=== PATIENT | male | born 1940 | race Caucasian/White ===

== ENCOUNTER 2019-08-17 09:28 | Outpatient (CLI) | payer OTHER, SELFPAY ==
[2019-08-17 10:44] LABS: Blood Urea Nitrogen 23 mg/dL (9-20); Calcium 9.2 mg/dL (8.4-10.2); Carbon Dioxide 31 mmol/L (22-30); Chloride 101 mmol/L (98-107); Estimated Glomerular Filt Rate > 60; Glucose 108 mg/dL (75-110); Potassium 4.4 mmol/L (3.4-5.0); Sodium 139 mmol/L (137-145)
--- NOTE | 2019-08-20 12:46 | WPDHOLTEREM ---
Holter/Event Monitor Holter/Event Monitor Date of procedure: 08/17/19 Procedure Type: 48 hour holter monitor Indications: Syncope Conclusion: 1. 48 hour holter monitor on 08/17/19. 2. Predominant rhythm is sinus rhythm. HR range 57-130 bpm; average HR 76 bpm. 3. There are 468 premature supraventricular complexes, 6 supraventricular couplets, and 40 supraventricular trigeminy. No supraventricular tachycardia. 4. There are 5 premature ventricular complexes and 1 ventricular couplet. No ventricular tachycardia. 5. No sinoatrial or atrioventricular blocks. No significant pauses greater than 2 seconds. 6. No symptoms available for correlation.
== END 2019-08-17 09:29 | disposition home or self-care (01) ==
PROVIDERS: PCP Internal Medicine; Visit Provider Internal Medicine
DX: I10 Essential (primary) hypertension (principal); R55 Syncope and collapse
CPT/HCPCS: 36415; 80048; 93225; 93226

== ENCOUNTER 2019-09-02 07:24 | Outpatient (CLI) | payer OTHER, SELFPAY ==
[2019-09-05 12:44] LABS: Testosterone Total 134 ng/dL (250-1100)
== END 2019-09-02 07:25 | disposition home or self-care (01) ==
PROVIDERS: PCP Internal Medicine; Visit Provider Internal Medicine
DX: R79.89 Other specified abnormal findings of blood chemistry (principal)
CPT/HCPCS: 36415; 84403

== ENCOUNTER 2019-12-02 09:31 | Outpatient (CLI) | payer OTHER, SELFPAY ==
[2019-12-02 10:17] LABS: CRP 1.2 mg/dL (<1.0)
[2019-12-02 10:25] LABS: Erythrocyte Sedimentation Rate 1 mm/hr (0-20)
== END 2019-12-02 09:32 | disposition home or self-care (01) ==
PROVIDERS: PCP Internal Medicine; Visit Provider Orthopaedic Surgery
DX: M25.551 Pain in right hip (principal)
CPT/HCPCS: 36415; 85652; 86140

== ENCOUNTER 2019-12-06 15:32 | Emergency (ER) | payer OTHER, SELFPAY ==
--- NOTE | ~2019-12-06 | XR_ITS ---
EXAMINATION: XR lumbar spine 2-3V DATE: 12/06/2019 16:06 INDICATION: Back pain radiating down both legs. TECHNIQUE: Anteroposterior and lateral views of the lumbar spine, and cone-down lateral view of the l umbosacral junction were obtained. COMPARISON: Lumbar spine dated 04/01/2018 FINDINGS: 2 mm anterolisthesis L2 on L3 and 4 mm anterolisthesis L3 on L4. Lumbar vertebral body heights are no rmal. Mild disc height loss at T12, T12-L1, L3-L4, L4-5 and L5-S1. Multilevel bilateral severe lumbar facet osteoarthritis. Moderate bilateral sacroiliac osteoarthritis with ankylosis across portion of the right sacroiliac joint. Partially visualized right total hip arthroplasty. At least mild osteoart hritis at the partially visualized left hip joint. Atherosclerotic calcifications along the margins o f the abdominal aorta with partially visualized fusiform abdominal aortic aneurysm measuring up to 3. 9 cm AP diameter. IMPRESSION: 1. Moderate lumbar spondylosis. 2. Moderate bilateral sacroiliac osteoarthritis with partial ankylosis on the right. 3. Fusiform abdominal aortic aneurysm measuring up to 3.9 cm in AP diameter. Reviewed, dictated and finalized at location A. IMPRESSION: 1. Moderate lumbar spondylosis. 2. Moderate bilateral sacroiliac osteoarthritis with partial ankylosis on the r ight. 3. Fusiform abdominal aortic aneurysm measuring up to 3.9 cm in AP diameter.
[2019-12-06 15:35] VITALS: BP 198/75; PULSE 66; RESP 18; TEMP 36.6; O2SAT 97
[2019-12-06] MEDS: SODIUM CHLORIDE 0.9% IV 500 ML 999 ML IV CONT (15:58)
--- NOTE | 2019-12-06 16:18 | ED.BACK ---
HPI - Back Pain/Injury General Chief Complaint: Back Pain/Injury <Clifford Lennon PA-C - Last Filed: 12/06/19 17:46> Stated Complaint: hip pain <Clifford Lennon PA-C - Last Filed: 12/06/19 17:46> Time Seen by Provider: 12/06/19 15:34 <Clifford Lennon PA-C - Last Filed: 12/06/19 17:46> Source: patient <Clifford Lennon PA-C - Last Filed: 12/06/19 17:46> Mode of arrival: ambulatory <Clifford Lennon PA-C - Last Filed: 12/06/19 17:46> Limitations: no limitations <DYLAN Ortiz Last Filed: 12/06/19 17:46> History of Present Illness HPI Narrative: Patient is a 79-year-old male who presents to emergency department for evaluation of low back pain localized to the right lower back that radiates down the right leg has been present now for the last couple of weeks patient denies injury or trauma saw his orthopedist was concerned that it may be is hip but was told that it was likely has back patient has been taking hydrocodone and anti-inflammatories with minimal improvement patient on arrival to emergency department is in the room in no distress <Clifford Lennon PA-C - Last Filed: 12/06/19 17:46> Related Data Allergies/Adverse Reactions: Allergies Allergy/AdvReac Type Severity Reaction Status Date / Time acetaminophen [From Tylenol] Allergy Mild Rash Verified 12/02/19 08:21 <Clifford Lennon PA-C - Last Filed: 12/06/19 17:46> Review of Systems Review of Systems: All systems reviewed & are unremarkable except as noted in HPI and below <Clifford Lennon PA-C - Last Filed: 12/06/19 17:46> [facility] Past Medical History Medical History: Medical History BPH (benign prostatic hyperplasia) Depression with anxiety Dizziness Hyperlipidemia Hypertension Impaired glucose tolerance Low testosterone in male ELINA on CPAP Osteoarthritis Osteoarthritis of multiple joints Vertigo Vision loss <DYLAN Ortiz Last Filed: 12/06/19 17:46> Surgical History Surgical History: Surgical History History of appendectomy Hx of arthroscopy of left knee Hx of bilateral cataract extraction Hx of hemorrhoidectomy Hx of inguinal herniorrhaphy S/P total hip arthroplasty <Clifford Lennon PA-C - Last Filed: 12/06/19 17:46> Social History Social History: Social History Smoking status: Former smoker Smoking end date: 07/08/97 Alcohol intake: never Substance use: never Gender identity (if verbalized by the patient): Male Spiritual care concerns: No Agree to blood products: Yes <Clifford Lennon PA-C - Last Filed: 12/06/19 17:46> Exam Narrative: Exam Narrative: GENERAL: Well-appearing, well-nourished, and in no acute distress. HEAD: Normocephalic, atraumatic. EYES: PERRLA and EOMI. ENT: Nares clear, no rhinorrhea or epistaxis. Mucous membranes moist. CHEST: Clear to auscultation. No respiratory distress. No wheezes rales or rhonchi HEART: Regular rate and rhythm. No murmur heard. Normal peripheral pulses. ABDOMEN: Soft, nontender, distended EXTREMITIES: Normal range of motion. No edema. Tenderness of the right SI region no deformity noted SKIN: Warm, dry, no rash. NEURO: No focal deficits. Alert and oriented x3. Cranial nerves II through XII grossly intact. Motor and sensory intact and symmetrical in the extremities PSYCH: Normal mood and affect. <Clifford Lennon PA-C - Last Filed: 12/06/19 17:46> Course Course Emergency Course: Patient in the room aware of case findings treatment plan and diagnosis agreeing to follow-up as directed or to return if symptoms worsen or concerns <Clifford Lennon PA-C - Last Filed: 12/06/19 17:46> Consultations Consultation #1: Spoke with Dr. Walker who will inform patient's primary care of the findings today specificall
[2019-12-06 16:19] LABS: Basophils Percent Auto 0.7 % (0.2-1.2); Eosinophils Absolute Auto 0.2 K/mm3 (0-0.3); Eosinophils Percent Auto 3.2 % (0-4.4); Hematocrit 45.6 % (42.0-52.0); Hemoglobin 15.1 g/dL (14.0-18.0); Immature Granulocyte Absolute 0.02 K/mm3 (0.00-0.031); Immature Granulocyte Percent A 0.3 % (0-0.5); Lymphocytes Absolute Auto 1.22 K/mm3 (0.9-3.2); Lymphocytes Percent Auto 20.8 % (18.3-44.2); Mean Corpuscular HGB Conc 33.1 g/dl (32-36); Mean Corpuscular Hemoglobin 30.4 pg (26-34); Mean Corpuscular Volume 91.8 fl (80-100); Mean Platelet Volume 10.6 fl (7.4-10.4); Monocytes Absolute Auto 0.8 K/mm3 (0.1-0.6); Monocytes Percent Auto 13.3 % (2.6-8.5); Neutrophils Absolute Auto 3.6 K/mm3 (1.3-6.7); Neutrophils Percent Auto 61.7 % (45.5-73.1); Platelet Count Result 164 k/mm3 (150-375); Red Blood Count 4.97 M/mm3 (4.6-6.20); Red Cell Distribution Width 15.5 % (11.5-14.5); White Blood Count 5.9 K/mm3 (4.5-10.0)
[2019-12-06 16:29] LABS: Potassium 4.3 mmol/L (3.4-5.0)
[2019-12-06 16:32] LABS: Blood Urea Nitrogen 21 mg/dL (9-20); Calcium 8.8 mg/dL (8.4-10.2); Carbon Dioxide 28 mmol/L (22-30); Chloride 97 mmol/L (98-107); Estimated CRCL calculation 74 ml/min; Estimated Glomerular Filt Rate > 60; Glucose 117 mg/dL (75-110); Sodium 130 mmol/L (137-145)
[2019-12-06 18:10] VITALS: BP 162/58; PULSE 63; RESP 18; O2SAT 98
== END 2019-12-06 18:14 | disposition home or self-care (01) ==
PROVIDERS: Emergency Medicine Emergency Medical Services; Emergency Provider Emergency Medicine; PCP Internal Medicine
DX: M54.5 Low back pain (principal); I71.4 Abdominal aortic aneurysm, without rupture; N40.0 Benign prostatic hyperplasia without lower urinary tract symptoms; E78.5 Hyperlipidemia, unspecified; I10 Essential (primary) hypertension; G47.33 Obstructive sleep apnea (adult) (pediatric); M19.90 Unspecified osteoarthritis, unspecified site; Z98.42 Cataract extraction status, left eye; Z98.41 Cataract extraction status, right eye; Z96.649 Presence of unspecified artificial hip joint; Z87.891 Personal history of nicotine dependence; M47.816 Spondylosis without myelopathy or radiculopathy, lumbar region; M47.898 Other spondylosis, sacral and sacrococcygeal region
CPT/HCPCS: 36415; 72100; 80048; 85025; 96361; 96374; 99284; J3360; J7040

== ENCOUNTER 2019-12-07 16:22 | Outpatient (CLI) | payer OTHER, SELFPAY ==
--- NOTE | ~2019-12-07 | MR_ITS ---
EXAMINATION: MR lumbar spine wo con DATE: 12/07/2019 17:07 INDICATION: Lumbar spinal stenosis. Low back pain. TECHNIQUE: Magnetic resonance imaging (MRI) of the lumbar spine was performed without intravenous con trast. Sequences included sagittal T2-weighted FSE, sagittal T2-weighted FS FSE, sagittal T1-weighted FSE, and axial T2-weighted FSE. COMPARISON: Lumbar spine MRI 04/01/2018 FINDINGS: There is 8 degrees dextrocurvature of lumbar spine. There is 3 mm anterolisthesis of L3 on L4. Vertebral body heights are normal. There is moderately decreased disc height at L5-S1. The distal spinal cord signal intensity is normal. The conus medullaris is at T12-L1. The following disc levels are specifically discussed: L1-L2: The disc is mildly bulging. There is moderate right and mild left facet joint osteoarthritis. There is mild bilateral neural foraminal stenosis. There is mild central canal stenosis. L2-L3: The disc is bulging. There is severe right and moderate left facet joint osteoarthritis. There is mild bilateral neural foraminal stenosis. There is mild central canal stenosis. L3-L4: The disc does not extend beyond the endplate margin. There is severe bilateral facet joint ost eoarthritis. There is mild bilateral neural foraminal stenosis. There is mild central canal stenosis. L4-L5: The disc is bulging. There is severe right and moderate left facet joint osteoarthritis. There is mild bilateral neural foraminal stenosis. There is mild central canal stenosis. L5-S1: The disc is bulging and has an annular fissure. There is severe bilateral facet joint osteoart hritis. There is moderate bilateral neural foraminal stenosis. There is mild central canal stenosis. IMPRESSION: 1. Moderate lower lumbar spondylosis, stable from 04/01/2018. Reviewed, dictated and finalized at location A.
== END 2019-12-07 16:23 | disposition home or self-care (01) ==
PROVIDERS: PCP Internal Medicine; Visit Provider Orthopaedic Surgery
DX: M48.062 Spinal stenosis, lumbar region with neurogenic claudication (principal); M47.816 Spondylosis without myelopathy or radiculopathy, lumbar region
CPT/HCPCS: 72148

== ENCOUNTER 2019-12-18 11:24 | Outpatient (CLI) | payer OTHER, SELFPAY ==
--- NOTE | ~2019-12-18 | MR_ITS ---
EXAMINATION: MR hip RT wo con DATE: 12/18/2019 13:35 INDICATION: Right hip pain TECHNIQUE: Magnetic resonance imaging (MRI) of the right hip was performed without intravenous contr ast. Sequences included full-field of the pelvis with axial STIR, coronal T1-weighted FSE and T2-weig hted FSE and small field of view of the right hip with axial, sagittal and coronal T1-weighted FSE an d T2-weighted FSE and coronal fluid sensitive FSE STIR. Increased band width was utilized for metal s uppression. COMPARISON: None FINDINGS: Bones: Metallic magnetic field artifact associated with a right total hip arthroplasty. There is a well-defi gaby fluid collection along the anterolateral aspect of the femoral stem extends 4.3 cm caudally from the level of the calcar. The collection has a triangular configuration on the axial images measuring 1.4 x 0.4 cm in maximal transaxial dimensions. Normal bone marrow signal throughout with no evident f racture or pathologic marrow replacing process. Moderate lower lumbar spondylosis. Fluid: Symmetric physiologic amount of fluid within both hip joints. 5.6 x 3.8 x 1.5 cm fluid-filled greater trochanteric bursa which underlines the more superficial surgical scar. No significant surrounding s oft tissue edema to suggest septic bursitis. Soft tissues: There is prominent thickening and mild increased signal of the distal 2 cm of the posterior compartme nt of the right gluteus medius tendon consistent with tendinopathy without discrete tear. The bilater al iliopsoas and remaining gluteal tendons are normal. There is relatively symmetric mild tendinopath y without discrete tear at the ischial tuberosity origin of the bilateral hamstring tendons. There is asymmetric moderate fatty atrophy and mild increased fluid signal throughout the right quadratus fem violeta muscle. The distal muscle and tendon passed between the right ischial and the lesser trochanter the cortical margins of which are by only 3-4 mm. Otherwise symmetric muscle bulk and signa l throughout the pelvis and proximal thighs. Trabeculated mucosal surface of the bladder which may be related to chronic outlet obstruction from the mildly enlarged prostate. There are few scattered div erticula along the sigmoid colon without adjacent inflammatory change to suggest diverticulitis. No pathologically enlarged pelvic/inguinal lymphadenopathy. IMPRESSION: 1. Moderate tendinopathy without discrete tear at the distal right radius medius tendon. 2. Right ischiofemoral impingement with quadratus femoris space measuring 3-4 mm and with edema and m oderate fatty atrophy of the right quadratus femoris muscle. 3. Moderate amount of fluid in the right greater trochanteric bursa which could represent a residual postoperative seroma or bursitis. 4. Right total hip arthroplasty with small fluid collection along Gruen zone 1. 5. Mild tendinopathy at the bilateral proximal hamstring origins. Reviewed, dictated and finalized at location A. IMPRESSION: 1. Moderate tendinopathy without discrete tear at the distal right radius mediu s tendon. 2. Right ischiofemoral impingement with quadratus femoris space measuring 3-4 m m and with edema and moderate fatty atrophy of the right quadratus femoris musc le. 3. Moderate amount of fluid in the right greater trochanteric bursa which could represent a residual postoperative seroma or bursitis. 4. Right total hip arthroplasty with small fluid collection along Gruen zone 1. 5. Mild tendinopathy at the bilateral proximal hamstring origins.
== END 2019-12-18 11:25 | disposition home or self-care (01) ==
LOC: ANHIMG 11:25
PROVIDERS: PCP Internal Medicine; Visit Provider Orthopaedic Surgery
DX: M25.551 Pain in right hip (principal); M76.891 Other specified enthesopathies of right lower limb, excluding foot; M25.851 Other specified joint disorders, right hip; M62.551 Muscle wasting and atrophy, not elsewhere classified, right thigh; Z96.641 Presence of right artificial hip joint
CPT/HCPCS: 73721

== ENCOUNTER 2019-12-22 17:07 | Emergency (ER) | payer OTHER, SELFPAY ==
[2019-12-22 17:19] VITALS: BP 145/76; PULSE 90; RESP 16; TEMP 36.3; O2SAT 97
--- NOTE | 2019-12-22 18:35 | ED.LOWEXIN ---
HPI - Extremity Injury (Lower) General Chief Complaint: Extremity Injury, Lower Stated Complaint: hip pain/htn Time Seen by Provider: 12/22/19 18:05 Source: patient Mode of arrival: wheelchair Limitations: no limitations History of Present Illness HPI Narrative: This is a 79 year old male that presents to the ER for right hip pain x 3 months. Reports he had this hip replaced in July by Dr. Cope. Reports since September he has had some increasing pain in the hip. Reports he has been seeing Dr. Booker for this and had an MRI of his hip 4 days ago. Reports he has bursitis in the hip. Denies fever, numbness, decreased range of motion, erythema, or edema. Related Data Allergies Allergy/AdvReac Type Severity Reaction Status Date / Time acetaminophen [From Tylenol] Allergy Mild Rash Verified 12/16/19 07:39 Review of Systems Review of Systems: Narrative: CONSTITUTIONAL: Denies fever MUSCULOSKELETAL: Reports joint pain, and myalgia. NEUROLOGIC: Denies numbness, or weakness. All systems reviewed & are unremarkable except as noted in HPI and below PMFSH Social History Social History Smoking status: Former smoker Smoking end date: 07/08/97 Alcohol intake: never Substance use: never Gender identity (if verbalized by the patient): Male Spiritual care concerns: No Agree to blood products: Yes Exam Narrative: Exam Narrative: GENERAL: Well-appearing, well-nourished, and in no acute distress. HEAD: Normocephalic, atraumatic. EYES: EOMI. EXTREMITIES: Normal range of motion. No edema or erythema. Strength equal in bilateral lower extremities. Normal DP pulses SKIN: Warm, dry, no rash. NEURO: No focal deficits. Alert and oriented x3. PSYCH: Normal mood and affect Course Vital Signs Vital signs: Vital Signs Temperature 97.4 F L 12/22/19 17:19 Pulse Rate 90 12/22/19 17:19 Respiratory Rate 16 12/22/19 17:19 Blood Pressure 145/76 H 12/22/19 17:19 Pulse Oximetry 97 12/22/19 17:19 Temperature 97.4 F L 12/22/19 17:19 Pulse Rate 78 12/22/19 19:12 Respiratory Rate 18 12/22/19 19:12 Blood Pressure 133/67 12/22/19 19:12 Pulse Oximetry 96 12/22/19 19:12 MDM - Extremity Injury (Lower) MDM Narrative Medical decision making narrative: Patient presents to the emergency department for right hip pain for the last 3 months. No new injury or trauma. He has been seeing Dr. Booker for this and had an MRI of his hip 4 days ago which showed trochanteric bursitis and tendinopathy. CBC is without leukocytosis. Inflammatory markers are not elevated. Patient is afebrile and nontoxic-appearing. Neurologically intact. Spoke with Dr. Booker about patient who would like him to use his walker and take pain medication as needed. He has an appointment to see him in clinic in 2 days and will likely do an intra-articular injection. Patient is stable and felt appropriate for further outpatient evaluation. He was given warnings to return to the ER Lab Data Attestation: I reviewed the patient's lab results. Result diagrams: 12/22/19 18:50 Labs: Lab Results 12/22/19 12/22/19 Range/Units 18:50 18:50 WBC 9.4 (4.5-10.0) K/mm3 RBC 5.39 (4.6-6.20) M/mm3 Hgb 16.5 (14.0-18.0) g/dL Hct 47.4 (42.0-52.0) % MCV 87.9 (80-100) fl MCH 30.6 (26-34) pg MCHC 34.8 (32-36) g/dl RDW 15.1 H (11.5-14.5) % Plt Count 186 (150-375) k/mm3 MPV 10.6 H (7.4-10.4) fl Immature Gran % (Auto) 0.4 (0-0.5) % Neut % (Auto) 76.9 H (45.5-73.1) % Lymph % (Auto) 11.0 L (18.3-44.2) % Piatt % (Auto) 10.6 H (2.6-8.5) % Eos % (Auto) 0.7 (0-4.4) % Baso % (Auto) 0.4 (0.2-1.2) % Lymph # (Auto) 1.03 (0.9-3.2) K/mm3 Piatt # (Auto) 1.0 H (0.1-0.6) K/mm3 Eos # (Auto) 0.1 (0-0.3) K/mm3 Baso # (Auto) 0.0 (0.0-0.1) K/mm3 Abs Immat Gran (auto) 0.04 H (0.00-0.031) K/mm3 Absolute Neuts (auto) 7.2
[2019-12-22 18:57] LABS: Basophils Percent Auto 0.4 % (0.2-1.2); Eosinophils Absolute Auto 0.1 K/mm3 (0-0.3); Eosinophils Percent Auto 0.7 % (0-4.4); Hematocrit 47.4 % (42.0-52.0); Hemoglobin 16.5 g/dL (14.0-18.0); Immature Granulocyte Absolute 0.04 K/mm3 (0.00-0.031); Immature Granulocyte Percent A 0.4 % (0-0.5); Lymphocytes Absolute Auto 1.03 K/mm3 (0.9-3.2); Mean Corpuscular HGB Conc 34.8 g/dl (32-36); Mean Corpuscular Hemoglobin 30.6 pg (26-34); Mean Corpuscular Volume 87.9 fl (80-100); Mean Platelet Volume 10.6 fl (7.4-10.4); Monocytes Percent Auto 10.6 % (2.6-8.5); Neutrophils Absolute Auto 7.2 K/mm3 (1.3-6.7); Neutrophils Percent Auto 76.9 % (45.5-73.1); Platelet Count Result 186 k/mm3 (150-375); Red Blood Count 5.39 M/mm3 (4.6-6.20); Red Cell Distribution Width 15.1 % (11.5-14.5); White Blood Count 9.4 K/mm3 (4.5-10.0)
[2019-12-22 19:12] VITALS: BP 133/67; PULSE 78; RESP 18; O2SAT 96
[2019-12-22 19:12] LABS: CRP 1.6 mg/dL (<1.0)
[2019-12-22 19:20] LABS: Erythrocyte Sedimentation Rate 4 mm/hr (0-20)
--- NOTE | 2019-12-22 19:20 | PC.NURSE ---
Assumed care of pt at this time. report from ALEX Funk
--- NOTE | 2019-12-22 20:40 | PC.NURSE ---
Upon discharge pt states he is writhing in pain and that he has never hurt like this . RN informed patient and that diazepam was called in for them at [facility]. pt states I can't go home like this. I have been to the ER twice in the last two weeks. RN informs patient that it sounds like he is heading in the right direction since he has had an MRI taken and has a follow up appointment with his primary this upcoming week.This RN offered to ask EDP for more pain medication before patient leaves. Rn also told patient he might need to start going to pain management. pt states I already went to pain management. I paid $37 a week to go. The nurse their told me that this wont do a darn thing for me and I am hurting so bad. This RN told patient that she already offered to ask the EDP for pain medication before being discharged and that it is important for him to contact his primary physician after discharge. I also informed the patient that he needs to take the medications that we prescribed him and take ibuprofen as needed for pain as well.
--- NOTE | 2019-12-22 20:45 | PC.NURSE ---
EDP notified of patients pain and request for more medication
[2019-12-22 20:50] VITALS: BP 167/60; PULSE 92; RESP 15; O2SAT 100
[2019-12-22] MEDS: KETOROLAC (*BKC) 60 MG/2 ML VIAL IM (20:50)
== END 2019-12-22 20:50 | disposition home or self-care (01) ==
PROVIDERS: Physician Assistant; Emergency Provider Emergency Medicine; PCP Internal Medicine
DX: M25.551 Pain in right hip (principal); Z87.891 Personal history of nicotine dependence
CPT/HCPCS: 36415; 85025; 85652; 86140; 96372; 99284; J1885; J3360

== ENCOUNTER 2020-01-06 14:26 | Emergency (ER) | payer OTHER, SELFPAY ==
--- NOTE | ~2020-01-06 | CT_ITS ---
EXAMINATION: CT brain wo con, CT cervical spine wo con EXAM DATE: 01/06/2020 15:23 INDICATION: Fell out of front seat of truck. Head injury. TECHNIQUE: Spiral CT of the head was performed without contrast. Axial, coronal and sagittal images were reviewed. Spiral CT of the cervical spine was performed without contrast. Axial images were rev iewed. Coronal and sagittal reformatted images were also reviewed. The dose-length product (DLP) fo r this examination was 605.33 (accession [id number]), 419.84 (accession [id number]) mGy-cm. The exposure was tailored according to patient size, and iterative reconstruction (ASIR) was used as additional dose reduction technique. Comparison is made to prior examination from 09/17/2012. FINDINGS: HEAD CT: There is no acute intraparenchymal hemorrhage. No evidence of intraparenchymal brain mass l esion. No evidence of acute infarction. There is mild to moderate periventricular and subcortical hy podensity, nonspecific but probably related to small vessel ischemic disease. There is mild to mode rate prominence of the sulci and ventricles related to cerebral atrophy. There is intracranial hood tid arteriosclerosis. There is no mass effect or midline shift. There is no obstructive hydrocephal us suspected. There are no extra-axial collections. There are no acute calvarial fractures. Patien t has had bilateral ocular lens surgery. Soft tissue is unremarkable. Small amount of left sphenoid sinus low-density fluid. CERVICAL CT: Moderate to severe disc disease at C6-7. Moderate to large lower cervical, small upper c ervical bridging endplate osteophytes. Advanced cervical arthropathy. There is no evidence of acute c ervical fracture. The odontoid process is intact. Pre-dens space is normal. Prevertebral soft tiss ue is normal. There are no soft tissue abnormalities identified. There is no disc space widening or traumatic vertebral body subluxation suspected. A detailed level by level evaluation of spondylosi s can be added as addendum if requested. IMPRESSION: 1. No acute intracranial findings or cervical fracture. Reviewed, dictated and finalized at location B. IMPRESSION: 1. No acute intracranial findings or cervical fracture.
[2020-01-06 14:30] VITALS: BP 178/64; PULSE 65; RESP 20; TEMP 36.6; O2SAT 99
--- NOTE | 2020-01-06 15:41 | ED.GENADULT ---
HPI - General Adult General Chief complaint: Fall Stated complaint: fall Time Seen by Provider: 01/06/20 14:30 Source: patient Mode of arrival: ambulatory Limitations: no limitations History of Present Illness HPI narrative: Patient is a 79-year-old male who presents for injuries related to falling out of his truck just prior to arrival fell injuring the left side of the head with mild neck pain denies syncope loss of consciousness lightheadedness dizziness notes mild discomfort to the left knee left hand where he has abrasions contusions presents per private vehicle in no distress denies other complaints or any recent illness or sick contacts Related Data Home Medications Medication Instructions Recorded Confirmed carvedilol 50 mg PO BID 01/06/20 clonidine HCl 0.2 mg PO HS 01/06/20 hydrocodone-acetaminophen [[place]] 1 tablet PO Q8-10H PRN 01/06/20 sertraline [Zoloft] 50 mg PO DAILY 01/06/20 Allergies Allergy/AdvReac Type Severity Reaction Status Date / Time acetaminophen [From Tylenol] Allergy Mild Rash Verified 12/16/19 07:39 Review of Systems Review of Systems: All systems reviewed & are unremarkable except as noted in HPI and below PMFSH Social History Social History Smoking status: Former smoker Smoking end date: 07/08/97 Alcohol intake: never Substance use: never Gender identity (if verbalized by the patient): Male Spiritual care concerns: No Agree to blood products: Yes Exam Narrative: Exam Narrative: GENERAL: Well-appearing, well-nourished, and in no acute distress. HEAD: Normocephalic, small hematoma to the left forehead EYES: PERRLA and EOMI. ENT: Nares clear, no rhinorrhea or epistaxis. Mucous membranes moist. Oropharynx without tonsillar hypertrophy exudate or other lesions. NECK: Supple. No adenopathy or masses. CHEST: Clear to auscultation. No respiratory distress. No wheezes rales or rhonchi HEART: Regular rate and rhythm. No murmur heard. We will black EXTREMITIES: Normal range of motion. No edema. Small abrasion to the dorsal surface of the left hand and left knee SKIN: Warm, dry, no rash. NEURO: No focal deficits. Alert and oriented x3. Cranial nerves II through XII grossly intact midline cervical tenderness no thoracic or lumbar tenderness PSYCH: Normal mood and affect. Course Course Emergency Course: Patient in the room in no distress Vital Signs Vital signs: Vital Signs Temperature 97.9 F 01/06/20 14:30 Pulse Rate 01/06/20 14:30 Respiratory Rate 01/06/20 14:30 Blood Pressure 178/64 H 01/06/20 14:30 Pulse Oximetry 99 01/06/20 14:30 Temperature 97.9 F 01/06/20 14:30 Pulse Rate 01/06/20 14:30 Respiratory Rate 01/06/20 14:30 Blood Pressure 178/64 H 01/06/20 14:30 Pulse Oximetry 99 01/06/20 14:30 Medical Decision Making MDM Narrative Medical decision making narrative: Patient in the room in no distress aware of case findings treatment plan and diagnosis agreeing to follow-up as directed or to return if symptoms worsen or concerns patient provided with reasons to return. Vital Signs Vital Signs: Vital Signs Temperature 97.9 F 01/06/20 14:30 Pulse Rate 01/06/20 14:30 Respiratory Rate 01/06/20 14:30 Blood Pressure 178/64 H 01/06/20 14:30 Pulse Oximetry 99 01/06/20 14:30 Temperature 97.9 F 01/06/20 14:30 Pulse Rate 01/06/20 14:30 Respiratory Rate 01/06/20 14:30 Blood Pressure 178/64 H 01/06/20 14:30 Pulse Oximetry 99 01/06/20 14:30 Imaging Data Radiologist's impression: ITS Impressions Cervical Spine CT 01/06/20 15:25 IMPRESSION: 1. No acute intracranial findings or cervical fracture. Head CT 01/06/20 15:25 IMPRESSION: 1. No acute intracranial findings or cervical fracture. Discharge Plan Discharge Clinical Impression: Head injury, Acute cervical myofascial strain,
[2020-01-06 16:00] VITALS: RESP 16
== END 2020-01-06 16:05 | disposition home or self-care (01) ==
PROVIDERS: Emergency Provider Emergency Medicine; PCP Internal Medicine
DX: S00.83XA Contusion of other part of head, initial encounter (principal); S16.1XXA Strain of muscle, fascia and tendon at neck level, initial encounter; S60.222A Contusion of left hand, initial encounter; S80.02XA Contusion of left knee, initial encounter; Z87.891 Personal history of nicotine dependence; W17.89XA Other fall from one level to another, initial encounter
CPT/HCPCS: 70450; 72125; 99284

== ENCOUNTER 2020-01-29 14:57 | Emergency (ER) | payer OTHER, SELFPAY ==
--- NOTE | 2020-01-29 15:14 | ECG_ITS ---
Measurements Intervals [place] Rate: 89 P: ID: 0 QRS: -1 QRSD: 79 T: 65 QT: 358 QTc: 436 Interpretive Statements SINUS RHYTHM WITH FIRST DEGREE AV BLOCK BASELINE ARTIFACT- I, II, III, AVR, AVF ABNORMAL ECG Electronically Signed On 01-29-2020 15:36:07 CDT by Herson West D.O.
[2020-01-29 15:15] VITALS: BP 154/95; PULSE 108; RESP 24; TEMP 36.8
--- NOTE | 2020-01-29 15:18 | ED.FALL ---
HPI - Fall General Chief Complaint: Fall Stated Complaint: falling Time Seen by Provider: 01/29/20 15:01 Source: patient Mode of arrival: ambulatory Limitations: no limitations History of Present Illness HPI Narrative: 79 year old male presents to urgent care for complaints of fall x2 today. Patient reports that he was standing up from his chair when he fell once and then also fell while flushing the toilet. Patient denies symptoms prior to falling. Patient denies hitting his head or loss of consciousness. Patient denies chest pain, shortness of breath, dizziness, headache, blurred vision, nausea, vomiting or diarrhea. Patient reports he called his primary care provider who advised him to proceed to urgent care for further evaluation. MD complaint: fall Fall from: standing Place fall occurred: home Loss of consciousness: none Prolonged down time: no Symptoms prior to fall: none Associated symptoms (after fall): denies Related Data Home Medications Medication Instructions Recorded Confirmed carvedilol 50 mg PO BID 01/06/20 clonidine HCl 0.2 mg PO HS 01/06/20 hydrocodone-acetaminophen [[place]] 1 tablet PO Q8-10H PRN 01/06/20 sertraline [Zoloft] 50 mg PO DAILY 01/06/20 Allergies Allergy/AdvReac Type Severity Reaction Status Date / Time acetaminophen [From Tylenol] Allergy Mild Rash Verified 01/29/20 15:21 Review of Systems Review of Systems: All systems reviewed & are unremarkable except as noted in HPI and below Constitutional: Constitutional: Denies chills, Denies fatigue, Denies fever(s) and Denies weakness ENT: Denies dysphagia, Denies dizziness, Denies epistaxis and Denies sore throat Cardiovascular: Cardiovascular: Denies chest pain Respiratory: Respiratory: Denies cough and Denies dyspnea Gastrointestinal: Gastrointestinal: Denies abdominal pain, Denies constipation, Denies diarrhea and Denies vomiting Musculoskeletal: Musculoskeletal: Denies arthralgias and Denies joint swelling Neurologic: Comments: falls X 2 today Endocrine: Endocrine: Denies polyuria Allergic/Immunologic: Allergic/Immunologic: Denies throat swelling, Denies tongue swelling and Denies wheezing PMFSH Past Medical History Medical History BPH (benign prostatic hyperplasia) Depression with anxiety Dizziness Hyperlipidemia Hypertension Impaired glucose tolerance Low testosterone in male ELINA on CPAP Osteoarthritis Osteoarthritis of multiple joints Vertigo Vision loss Surgical History Surgical History History of appendectomy Hx of arthroscopy of left knee Hx of bilateral cataract extraction Hx of hemorrhoidectomy Hx of inguinal herniorrhaphy S/P total hip arthroplasty Family History Family History Sibling Hypertension Family history of cardiac disorder Family history of diabetes mellitus in first degree relative Family history of malignant neoplasm of breast in first degree relative Diabetes mellitus Mother Acute myocardial infarction, Onset Age: 81 Patient's mother is Father Patient's father is Other Family history of malignant neoplasm Social History Social History Smoking status: Former smoker Smoking end date: 07/08/97 Alcohol intake: never Substance use: never Gender identity (if verbalized by the patient): Male Spiritual care concerns: No Agree to blood products: Yes Exam Const: General: healthy appearing; No no acute distress or alert Orientation/consciousness: No patient oriented x3 HENMT: Head: normal to inspection Ears: EAC's normal General nose exam: Normal nares present Face and sinus: normal facial exam Throat: uvula midline Eyes: Conjunctivae: conjunctivae normal Pupils: Equal, round and reactive pupils present EO
[2020-01-29 15:24] VITALS: BP 154/50; PULSE 90
[2020-01-29 15:25] VITALS: BP 145/51; PULSE 93
[2020-01-29 15:26] VITALS: BP 149/53
--- NOTE | 2020-01-29 15:31 | PC.NURSE ---
Denies any dizziness, orthrostatics completed, patient was asymptomatic.
== END 2020-01-29 15:33 | disposition short-term general hospital (02) ==
PROVIDERS: Emergency Provider Nurse Practitioner Family; PCP Internal Medicine
DX: Z04.3 Encounter for examination and observation following other accident (principal); W19.XXXA Unspecified fall, initial encounter; Z87.891 Personal history of nicotine dependence; Z98.42 Cataract extraction status, left eye; Z98.41 Cataract extraction status, right eye; N40.0 Benign prostatic hyperplasia without lower urinary tract symptoms; F32.9 Major depressive disorder, single episode, unspecified; F41.9 Anxiety disorder, unspecified; E78.5 Hyperlipidemia, unspecified; I10 Essential (primary) hypertension; G47.33 Obstructive sleep apnea (adult) (pediatric); M19.90 Unspecified osteoarthritis, unspecified site
CPT/HCPCS: 93005; 99213; G0463

== ENCOUNTER 2020-01-29 15:45 | Observation (INO) | payer OTHER, SELFPAY ==
[2020-01-29] VITALS (10 sets, daily range): BP systolic 113–178; BP diastolic 50–74; PULSE 73–86; RESP 14–22; TEMP 37.1–37.3; O2SAT 94–100
--- NOTE | ~2020-01-29 | XR_ITS ---
EXAMINATION: XR chest 1V portable INDICATION: Dizziness and fall TECHNIQUE: Portable AP chest at 1625 hours COMPARISON: 06/26/2017 FINDINGS: There are minimal airspace opacities of the mid and lower lung zones. No pleural effusion o r pneumothorax is identified. The cardiomediastinal silhouette is normal for technique. There is oste oarthritis of the shoulders. IMPRESSION: 1. Airspace opacities of the mid and lower lung zones, consistent with atelectasis versus pneumonia. Reviewed, dictated and finalized at location A. IMPRESSION: 1. Airspace opacities of the mid and lower lung zones, consistent with atelecta sis versus pneumonia.
--- NOTE | ~2020-01-29 | CT_ITS ---
EXAMINATION: CT brain wo con EXAM DATE: 01/29/2020 17:01 INDICATION: Dizziness. Weakness, frequent falls. TECHNIQUE: Spiral CT of the head was performed without contrast. Axial, coronal and sagittal images were reviewed. The dose-length product (DLP) for this examination was 681.00 mGy-cm. The exposure w as tailored according to patient size, and iterative reconstruction (ASIR) was used as additional dos e reduction technique. Comparison is made to prior examination from 01/06/2020. FINDINGS: There is no acute intraparenchymal hemorrhage. No evidence of intraparenchymal brain mass lesion. No evidence of acute infarction. Please note that initial head CT has limited sensitivity f or small or acute infarctions. There is mild periventricular and subcortical hypodensity, nonspecific but probably related to small vessel ischemic disease. There is mild prominence of the sulci and v entricles related to cerebral atrophy. There is intracranial carotid arteriosclerosis. There are n o extra-axial collections. There is no mass effect or midline shift. Patient has had bilateral ocul ar lens surgery. Soft tissue is unremarkable. Small amount of fluid in the larger left-sided spheno id sinus. IMPRESSION: 1. No acute intracranial findings. 2. Chronic age related findings. Reviewed, dictated and finalized at location A.
--- NOTE | ~2020-01-29 | MR_ITS ---
EXAMINATION: MR brain/brain stem wo/w con EXAM DATE: 01/30/2020 09:16 INDICATION: Vertigo. When patient turns head to left becomes dizzy and passes out. TECHNIQUE: Magnetic resonance imaging (MRI) of the brain/brain stem obtained without contrast. Sagit elizabeth T1, axial diffusion, gradient echo (T2*), T1, T2, FLAIR sequences obtained. Patient was then inj ected with 18 cc intravenous Multihance contrast. Axial and coronal postcontrast T1 weighted sequence s obtained. Comparison is made to prior examination from 01/22/2013. FINDINGS: There are no areas of restricted diffusion to suggest acute infarction. There is no acute hemorrhage seen on the T2*, a hemosiderin sensitive sequence. No intraparenchymal brain mass lesion. 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 There is mild periventricular and subco rtical T2/FLAIR signal hyperintensity, nonspecific but probably related to small vessel ischemic dise ase (microangiopathy). There is mild prominence of the sulci and ventricles related to cerebral atr ophy. There are no extra-axial collections. Flow voids are seen in the cerebral arteries on the T2 -weighted sequences consistent with their expected patency. Patient has had bilateral ocular lens brown rgery. Soft tissue is unremarkable. There are no areas of abnormal enhancement on the postcontrast images. IMPRESSION: 1. No acute intracranial findings. 2. Chronic age related findings. Reviewed, dictated and finalized at location G.
--- NOTE | 2020-01-29 16:09 | ECG_ITS ---
Measurements Intervals [place] Rate: 80 P: DE: 0 QRS: -17 QRSD: 82 T: 63 QT: 361 QTc: 418 Interpretive Statements SINUS RHYTHM WITH FIRST DEGREE AV BLOCK BASELINE ARTIFACT- I, II, III, AVR, AVL, AVF, V1 ABNORMAL ECG Electronically Signed On 01-29-2020 19:44:42 CDT by Herson West D.O.
[2020-01-29 16:31] LABS: Basophils Percent Auto 0.1 % (0.2-1.2); Hematocrit 40.9 % (42.0-52.0); Hemoglobin 13.9 g/dL (14.0-18.0); Immature Granulocyte Absolute 0.15 K/mm3 (0.00-0.031); Immature Granulocyte Percent A 1.1 % (0-0.5); Lymphocytes Absolute Auto 1.08 K/mm3 (0.9-3.2); Lymphocytes Percent Auto 7.6 % (18.3-44.2); Mean Corpuscular Volume 91.3 fl (80-100); Mean Platelet Volume 9.9 fl (7.4-10.4); Monocytes Absolute Auto 1.5 K/mm3 (0.1-0.6); Monocytes Percent Auto 10.4 % (2.6-8.5); Neutrophils Absolute Auto 11.5 K/mm3 (1.3-6.7); Neutrophils Percent Auto 80.8 % (45.5-73.1); Nucleated Red Blood Cells Perc 0.1 % (0.0-0.2); Platelet Count Result 192 k/mm3 (150-375); Red Blood Count 4.48 M/mm3 (4.6-6.20); Red Cell Distribution Width 15.6 % (11.5-14.5); White Blood Count 14.3 K/mm3 (4.5-10.0)
[2020-01-29 16:44] LABS: Alanine Aminotransferase 21 U/L (4-50); Alkaline Phosphatase 62 U/L (38-126); Anion Gap 14.3 mmol/L (7-16); Aspartate Amino Transferase 23 U/L (17-59); Bilirubin,Total 0.3 mg/dL (0.2-1.3); Blood Urea Nitrogen 29 mg/dL (9-20); Calcium 9.3 mg/dL (8.4-10.2); Carbon Dioxide 23 mmol/L (22-30); Chloride 102 mmol/L (98-107); Estimated CRCL calculation 83 ml/min; Estimated Glomerular Filt Rate > 60; Glucose 132 mg/dL (75-110); Potassium 4.3 mmol/L (3.4-5.0); Sodium 135 mmol/L (137-145)
--- NOTE | 2020-01-29 16:49 | ED.GENADULT ---
HPI - General Adult General Chief complaint: Fall Stated complaint: frequent falling Time Seen by Provider: 01/29/20 16:40 Source: RN notes reviewed History of Present Illness HPI narrative: Patient presents emergency department from urgent care for falls. Patient states he had 2 falls today. He states once while he was reaching to flush the toilet another 1 placed turnaround sent in a rocking chair. He states he also had an episode of a fall yesterday. He states he does not walk with a cane or walker currently lives at home with his . He states he does have a history of chronic pain in his right hip following a hip replacement in July and did just recently received a pain injection in his lower back for the hip. He denies striking his head or any loss of consciousness he denies any recent illness he denies any fevers or chills cough shortness of breath chest pain abdominal pain nausea vomiting or any other symptoms patient states that whenever he turns his head to the left he gets dizziness and this does tend to be what makes him fall when he is going to the left to flush the toilet and to get into his rocker Related Data Home Medications Medication Instructions Recorded Confirmed carvedilol 50 mg PO BID 01/06/20 01/29/20 clonidine HCl 0.2 mg PO HS 01/06/20 01/29/20 hydrocodone-acetaminophen [[place]] 1 tablet PO Q8-10H PRN 01/06/20 01/29/20 sertraline [Zoloft] 50 mg PO DAILY 01/06/20 01/29/20 Allergies Allergy/AdvReac Type Severity Reaction Status Date / Time acetaminophen [From Tylenol] Allergy Mild Rash Verified 01/29/20 16:23 Review of Systems Review of Systems: Narrative: Gen.: Denies fevers or chills Eyes: Denies eye pain or visual change ENT: Denies congestion Respiratory: Denies shortness of breath or cough CV: Denies chest pain or palpitations GI: Denies abdominal pain nausea, emesis or diarrhea denies burning, urgency, frequency or hematuria Musculoskeletal: Denies back pain or muscle pain Neuro: Denies numbness, tingling, weakness or focal weakness Skin: Denies rash Except as documented, all other systems reviewed and negative PMFSH Past Medical History Medical History BPH (benign prostatic hyperplasia) Depression with anxiety Dizziness Hyperlipidemia Hypertension Impaired glucose tolerance Low testosterone in male ELINA on CPAP Osteoarthritis Osteoarthritis of multiple joints Vertigo Vision loss Social History Social History Smoking status: Former smoker Smoking end date: 07/08/97 Alcohol intake: never Substance use: never Gender identity (if verbalized by the patient): Male Sexual Orientation (if Verbalized by the Patient): Straight or Heterosexual Spiritual care concerns: No Agree to blood products: Yes Exam Narrative: Exam Narrative: APPEARANCE: No acute distress, nontoxic, resting in bed EYES: EOMI, Tran HEENT: Normocephalic, atraumatic, OMM RESPIRATORY: No respiratory distress Clear to auscultation bilaterally with no rhonchi wheezing or rales. CARDIOVASCULAR: Regular rate and rhythm without murmurs rubs or gallops. ABDOMINAL: Soft, nontender, nondistended, no rebound or guarding MUSCULOSKELETAl: Moves all extremities. No clubbing, cyanosis or edema. NEURO: Awake and alert x 3. Following commands, speech normal, no focal deficits SKIN:: Warm, dry. No rashes lesions or abrasions PSYCHIATRIC: Normal affect/mood, Course Course Emergency Course: Patient with vertigo and frequent falls. At this time will admit for MRI further work-up Did review the patient's chest x-ray he has had no cough no fevers and no symptoms of pneumonia believe it is atelectasis at this time Discussed with JAYME Valiente for Dr. Morrow presentation work-up. Agrees with admission at this time Discussed with patient and family results of workup and diagnosis. Discussed need for admission.
[2020-01-29 16:56] LABS: INR 1.1
[2020-01-29 16:59] LABS: Partial Thromboplastin Time 25.1 SECONDS (22.3-36.8)
[2020-01-29 17:35] LABS: Add Urine Microscopic? NO; Appearance Urine Clear (Clear); Bilirubin Urine Negative (Negative); Blood Urine Negative (Negative); Color Urine Straw (Yellow); Glucose Urine UA Negative (Negative); Ketones Urine Negative (Negative); Leukocyte Esterase Ur Negative LEU/UL (Negative); Nitrate Urine Negative (Negative); Protein Urine Negative (Negative); RBC Urine 0-2 /hpf (0-2); Specific Grav Ur 1.012 (1.001-1.035); Squamous Epithelial Cell Urine Rare /hpf (Few); Urobilinogen Urine Negative mg/dL (<2.0); WBC Urine 0-3 /hpf
[2020-01-29] MEDS: MECLIZINE HCL 12.5 MG TABLET PO (17:49)
--- NOTE | 2020-01-29 21:26 | ADMGEN ---
This patient, Jose Salazar, was admitted to Medical Room 344-01. Patient/family oriented to hospital policies and general routines including ID bracelet, bed and alarms, visiting hours, pain management, procedures, bathroom and other care routines, personal items, smoking policy, room service/diet, and visiting hours. Valuables list has been completed. Information on how to activate the Rapid Response Team has been discussed. Patient/Family are encouraged to report perceived risks to care and to ask questions if they do not understand what they are told or what they should do.
[2020-01-30] VITALS (7 sets, daily range): BP systolic 138–182; BP diastolic 48–69; PULSE 62–71; RESP 14–16; TEMP 36.6–36.8; O2SAT 95–96
[2020-01-30] MEDS: cloNIDine HCL 0.2 MG TABLET PO (04:39)
[2020-01-30 06:33] LABS: Basophils Percent Auto 0.1 % (0.2-1.2); Hematocrit 40.8 % (42.0-52.0); Hemoglobin 13.8 g/dL (14.0-18.0); Immature Granulocyte Absolute 0.14 K/mm3 (0.00-0.031); Immature Granulocyte Percent A 1.2 % (0-0.5); Lymphocytes Absolute Auto 1.29 K/mm3 (0.9-3.2); Lymphocytes Percent Auto 11.1 % (18.3-44.2); Mean Corpuscular HGB Conc 33.8 g/dl (32-36); Mean Corpuscular Hemoglobin 30.9 pg (26-34); Mean Corpuscular Volume 91.3 fl (80-100); Mean Platelet Volume 11.1 fl (7.4-10.4); Monocytes Absolute Auto 1.2 K/mm3 (0.1-0.6); Monocytes Percent Auto 10.7 % (2.6-8.5); Neutrophils Percent Auto 76.9 % (45.5-73.1); Platelet Count Result 188 k/mm3 (150-375); Red Blood Count 4.47 M/mm3 (4.6-6.20); Red Cell Distribution Width 15.8 % (11.5-14.5); White Blood Count 11.6 K/mm3 (4.5-10.0)
[2020-01-30 06:49] LABS: Alanine Aminotransferase 21 U/L (4-50); Albumin Level 3.7 g/dL (3.5-5.1); Alkaline Phosphatase 57 U/L (38-126); Aspartate Amino Transferase 22 U/L (17-59); Bilirubin,Total 0.4 mg/dL (0.2-1.3); Blood Urea Nitrogen 25 mg/dL (9-20); Calcium 9.3 mg/dL (8.4-10.2); Carbon Dioxide 27 mmol/L (22-30); Chloride 106 mmol/L (98-107); Estimated CRCL calculation 83 ml/min; Estimated Glomerular Filt Rate > 60; Glucose 126 mg/dL (75-110); Sodium 138 mmol/L (137-145)
[2020-01-30] MEDS: MECLIZINE HCL 12.5 MG TABLET PO ×3 (09:46→17:01)
[2020-01-30] MEDS: IRBESARTAN 150 MG TABLET 300 MG PO (09:47)
[2020-01-30] MEDS: carvediloL 25 MG TABLET 50 MG PO (09:48)
[2020-01-30] MEDS: hydrALAZINE HCL 50 MG TABLET 100 MG PO (09:49)
[2020-01-30] MEDS: TERAZOSIN HCL 5 MG CAPSULE PO (09:50)
[2020-01-30] MEDS: SERTRALINE HCL 50 MG TABLET PO (09:50)
[2020-01-30] MEDS: CELECOXIB 200 MG CAPSULE PO (09:50)
--- NOTE | 2020-01-30 15:38 | PM.SD ---
Same Day Admit/Disch: HPI History of Present Illness Chief complaint: Gait instability, dizziness Narrative: Jose Salazar is a 79 year old male with history of high blood pressure, chronic back pain, who presents to the emergency room with dizziness for the last 3 days and associated falls from the dizziness. the patient has been having chronic dizziness spells for the last 2-3 years and has been hospitalized a few times in the past. he was told he has positional vertigo when he turns his head to the left. Patient states 2 nights ago he got up in the middle the night to go to the bathroom and became dizzy and fell. He denies any syncope and remembers the entire event. Then yesterday he had 2 dizziness episodes 1 while he was standing in looking out the window and the 2nd 1 whenever he was getting up to go into the kitchen and he fell onto the floor again. He denies any syncope at that time or other associated symptoms. Patient denies any pain or injury from his 3 falls. He denies any headaches, neck pain, arm pain, leg pain. he has chronic lower back pain and has sharp stabbing radiation that she is down his right leg. he states his low back pain is unchanged and he recently went to his pain management doctor and had an injection and is back which has helped some. He has also been having some lightheadedness when standing and states that his blood pressure has been running low at times. He saw his primary care provider on Saturday who decreased his irbesartan in half to trying help with his low blood pressures. He has been recording his blood pressures multiple times a day so that he can follow-up with his primary next week and they can make further adjustments if necessary. The patient otherwise denies any chest pain, shortness of breath, cough, fever, chills, nausea, vomiting, abdominal pain, diarrhea, constipation, leg swelling, calf pain, palpitations, urinary symptoms, or any other symptoms at this time. Initial labs showed temperature of 98.3?, blood pressure 154/95, slightly tachycardic heart rate 108, respiratory rate 24 and oxygen was 98% on room air. Initial labs showed slight leukocytosis at 14,300, with a left shift, normocytic anemia with a hemoglobin of 13.9/hematocrit 40.9%. Normal coag panel. Slight hyponatremia at 135, normal renal function, serum glucose slightly elevated at 132. Normal urinalysis. Chest x-ray shows no acute cardiopulmonary abnormality. CT brain shows no acute abnormality. The patient was admitted into the hospital for multiple falls and dizziness. Code Status: Full Code POA: Zeferino Haynes PCP: Dr. Trivedi COUNTS INCLUDE 234 BEDS AT THE [facility] Surgical History Surgical History History of appendectomy Hx of arthroscopy of left knee Hx of bilateral cataract extraction Hx of hemorrhoidectomy Hx of inguinal herniorrhaphy S/P total hip arthroplasty Family History Family History Sibling Hypertension Family history of cardiac disorder Family history of diabetes mellitus in first degree relative Family history of malignant neoplasm of breast in first degree relative Diabetes mellitus Mother Acute myocardial infarction, Onset Age: 81 Patient's mother is Father Patient's father is Other Family history of malignant neoplasm Social History Social History Smoking packs per day: 3 Smoking cigarettes per day: 60.0 Years smoked: 40 Smoking pack-years: 120.00 Smoking status: Former smoker Tobacco type: cigarettes Smoking end date: 07/08/97 Alcohol intake: never Substance use: never Living arrangements: with family Additional living arrangements comments: Lives with [facility] in [place], [place] Occupation/Education: retired Additional occupation/education comments: 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
== END 2020-01-30 17:20 | disposition home or self-care (01) ==
LOC: ANHED 18:49 → ANH3MED 20:13
PROVIDERS: Admitting Provider Family Medicine; Emergency Provider Emergency Medicine; PCP Internal Medicine; Visit Provider Physician Assistant
DX: R42 Dizziness and giddiness (principal); R26.81 Unsteadiness on feet; I10 Essential (primary) hypertension; E78.5 Hyperlipidemia, unspecified; F41.8 Other specified anxiety disorders; G47.33 Obstructive sleep apnea (adult) (pediatric); R29.6 Repeated falls; W18.39XA Other fall on same level, initial encounter; Y93.E8 Activity, other personal hygiene; Z87.891 Personal history of nicotine dependence; Z79.899 Other long term (current) drug therapy
CPT/HCPCS: 36415; 70450; 70553; 71045; 80053; 81003; 85025; 85610; 85730; 93005; 97161; 97165; 99285; A9270; A9577; G0378

== ENCOUNTER 2020-02-10 09:55 | Outpatient (CLI) | payer OTHER, SELFPAY ==
[2020-02-10 10:29] LABS: Blood Urea Nitrogen 28 mg/dL (9-20); Calcium 9.5 mg/dL (8.4-10.2); Carbon Dioxide 29 mmol/L (22-30); Chloride 104 mmol/L (98-107); Cholesterol 201 mg/dL (0-200); Estimated Glomerular Filt Rate > 60; Glucose 121 mg/dL (75-110); HDL Direct 54 mg/dL; Sodium 139 mmol/L (137-145); Triglycerides 124 mg/dL (<150)
[2020-02-10 10:36] LABS: Hemoglobin A1C 5.9 % (<5.7)
[2020-02-10 10:40] LABS: LDL Cholesterol Direct 105 mg/dL
== END 2020-02-10 09:56 | disposition home or self-care (01) ==
LOC: ANHLAB 09:56
PROVIDERS: PCP Internal Medicine; Visit Provider Internal Medicine
DX: E78.5 Hyperlipidemia, unspecified (principal); I10 Essential (primary) hypertension; R73.02 Impaired glucose tolerance (oral)
CPT/HCPCS: 36415; 80048; 80061; 83036